=== PATIENT | female | born 1990 | race Caucasian/White ===

== ENCOUNTER → 2021-06-10 | Outpatient (CLI) | payer BC ==
[~2021-06-10] MED LIST: GLUCOPHAGE500 MG/TAB PO; MOTRIN 800800 MG/TAB PO; PERCOCET 325 MG1 TA2 PO; PRENATAL; UNISOM25 MG PO; ZOLOFT 50MG50 MG PO
== END ==
LOC: DIA.ED 13:50
DX: O24.419 Gestational diabetes mellitus in pregnancy, unspecified control (principal)
CPT/HCPCS: G0108

== ENCOUNTER → 2021-06-26 | Outpatient (CLI) | payer BC | LOC: DIA.ED 09:59 | DX: O24.419 Gestational diabetes mellitus in pregnancy, unspecified control (principal); Z79.84 Long term (current) use of oral hypoglycemic drugs | CPT/HCPCS: G0108 ==

== ENCOUNTER 2021-07-09 19:49 | Outpatient (CLI) | payer BC ==
[~2021-07-09] VITALS: Ht 165.1 cm; Wt 119.7 kg
--- NOTE | 2021-07-09 19:55 | NUR ---
PT C/O CONTRACTIONS Q3-8MINUTES APART. DENIES LEAKING OF FLUID. REPORTS POSITIVE MOVEMENT. SCHEDULED FOR INDUCTION THURSDAY. HX.PIH, PRE-ECLAMPSIA, GDM. BP STABLE AT THIS TIME. SVE UPON ARRIVE 2-/-3. CATEGORY 1 STRIP. DIFFICULTY TRACING TOCO DUE TO MATERNAL OBESITY AND POSITIONING.
[2021-07-09] MEDS ORDERED: PRENATAL (20:02)
[2021-07-09] MEDS ORDERED: UNISOM25 MG PO (20:03)
[2021-07-09] MEDS ORDERED: ZOLOFT 50MG50 MG PO (20:03)
[2021-07-09 20:25] VITALS: BP 133/83; PULSE 92; TEMP 98.5
[2021-07-09 20:40] VITALS: TEMP 98.5
[2021-07-09 20:55] VITALS: BP 159/83; PULSE 83
[2021-07-09 21:24] VITALS: BP 151/84; PULSE 92
--- NOTE | 2021-07-09 21:35 | NUR ---
DC INSTRUCTIONS REVIEWED AND UNDERSTOOD BY PT AND SPOUSE. PT AMBULATORY FROM UNIT IN STABLE CONDITION. EDUCATED IN DEPTH ON WHEN TO RETURN TO L&D FOR FURTHER WORKUP.
[2021-07-12] MEDS ORDERED: PERCOCET 325 MG1 TA2 PO (07:46)
[2021-07-12] MEDS ORDERED: MOTRIN 800800 MG/TAB PO (07:46)
[2021-07-12] MEDS ORDERED: GLUCOPHAGE500 MG/TAB PO (08:48)
== END 2021-07-09 21:35 | disposition home or self-care (01) ==
LOC: LDRO 19:49 → LDR 20:07 → LDRO 21:35
DX: O62.9 Abnormality of forces of labor, unspecified (principal); Z3A.36 36 weeks gestation of pregnancy
CPT/HCPCS: OP

== ENCOUNTER → 2021-07-10 | Outpatient (CLI) | payer BC | LOC: ZCOL.LAB 07:47 | DX: Z20.822 Contact with and (suspected) exposure to COVID-19 (principal) ==